=== PATIENT | female | born 1990 | race Caucasian/White ===

== ENCOUNTER 2017-01-31 00:50 | Emergency (ER) | payer OTHER ==
[~2017-01-31] VITALS: Ht 170.1 cm; Wt 77.1 kg
[~2017-01-31 00:50] MED LIST: ANAPROX DS550 MG PO; AUGMENTIN 875 M1 TAB PO; CIPRO250 MG PO; DIFLUCAN150 MG PO; FLAGYL500 MG PO; MOTRIN400 MG PO; MOTRIN800 MG PO; NKHM; PREDNICOT20 MG PO; PRENATAL VITAMI1 TA9 PO; PROVENTIL0.09 MG/AC IH; Percocet 325 MG1 TAB PO; ROBITUSSIN AC 10 MG/ PO; VALIUM5 MG PO; VIBRAMYCIN100 MG PO; VISTARIL25 M1 PO; XANAX0.25 MG PO; ZITHROMAX250 MG PO; ZYPREXA5 M1 PO
== END 2017-01-31 02:35 ==
LOC: ED 00:50
DX: S00.83XA Contusion of other part of head, initial encounter (principal); F31.9 Bipolar disorder, unspecified; F17.200 Nicotine dependence, unspecified, uncomplicated; Y04.0XXA Assault by unarmed brawl or fight, initial encounter; Y93.89 Activity, other specified; Y92.89 Other specified places as the place of occurrence of the external cause; Y99.8 Other external cause status

== ENCOUNTER 2017-04-18 19:47 | Emergency (ER) | payer OTHER ==
[~2017-04-18] VITALS: Ht 167.6 cm; Wt 70.3 kg
[2017-04-18 20:26] LABS: BASO % 0.4 % (0.0-1.0); EOS % 0.5 % (1.0-4.0); HEMATOCRIT 42.8 % (37.0-47.0); HEMOGLOBIN 14.4 g/dl (12.0-16.0); LYMPH # 2.2 10*3/uL (1.3-4.4); LYMPH % 28.5 % (27.0-41.0); MEAN CELL VOLUME 92.8 fl (81.0-99.0); MEAN CORPUSCULAR HGB 31.2 pg (27.0-31.0); MEAN CORPUSCULAR HGB CONC 33.6 g/dl (33.0-37.0); MEAN PLATELET VOLUME 10.5 fl (9.6-12.3); MONO # 0.5 10*3/uL (0.1-1.0); MONO % 5.8 % (3.0-9.0); NEUT % 64.5 % (47.0-73.0); PLATELET COUNT AUTOMATED 219 10*3/uL (130-400); RED BLOOD COUNT 4.61 10*6/uL (4.10-5.10); RED CELL DISTRI WIDTH 12.8 % (0-14.5); WHITE BLOOD COUNT 7.7 10*3/uL (4.8-10.8)
[2017-04-18 20:46] LABS: ALKALINE PHOSPHATASE 69 U/L (45-117); BILIRUBIN, TOTAL 0.5 mg/dl (0.2-1.0); BUN 9 mg/dl (7-24); CARBON DIOXIDE 24 mmol/L (21-32); CHLORIDE 108 mmol/L (98-107); EST GLOM FILT AFRICAN AMERICAN > 60 ml/min; GLUCOSE 96 mg/dL (65-99); MAGNESIUM 1.9 mg/dL (1.5-2.1); POTASSIUM 3.7 mmol/L (3.5-5.1); SGOT/AST 35 IU/L (3-35); SGPT/ALT 60 U/L (12-78); SODIUM 142 mmol/L (136-145); TOTAL PROTEIN 7.8 gm/dL (6.4-8.2)
[2017-04-18 20:48] LABS: TROPONIN I < 0.015 ng/ml (<0.045)
[2017-04-18] MEDS ORDERED: Motrin,Rufen800 MG PO (21:55)
[2017-04-18] MEDS ORDERED: PEPCID20 MG PO (21:56)
[2017-04-19] MEDS ORDERED: TYLENOL325 M1 PO (10:36)
[2017-04-19] MEDS ORDERED: Zofran4 MG PO (10:41)
== END 2017-04-18 22:05 | disposition home or self-care (01) ==
LOC: ED 19:47
PROVIDERS: Emergency Medicine Emergency Medical Services
DX: S39.012A Strain of muscle, fascia and tendon of lower back, initial encounter (principal); K21.9 Gastro-esophageal reflux disease without esophagitis; F41.1 Generalized anxiety disorder; F43.0 Acute stress reaction; R06.02 Shortness of breath; R07.89 Other chest pain; X58.XXXA Exposure to other specified factors, initial encounter; Y93.9 Activity, unspecified; Y92.9 Unspecified place or not applicable; Y99.9 Unspecified external cause status

== ENCOUNTER 2017-04-19 08:41 | Emergency (ER) | payer OTHER ==
[~2017-04-19] VITALS: Ht 170.1 cm; Wt 70.3 kg
[~2017-04-19 08:41] MED LIST changes: +Motrin,Rufen800 MG PO; +PEPCID20 MG PO
[2017-04-19 09:12] LABS: BASO % 0.1 % (0.0-1.0); EOS # 0.1 10*3/uL (0.0-0.4); EOS % 0.7 % (1.0-4.0); HEMATOCRIT 39.2 % (37.0-47.0); HEMOGLOBIN 13.2 g/dl (12.0-16.0); LYMPH # 2.2 10*3/uL (1.3-4.4); LYMPH % 31.1 % (27.0-41.0); MEAN CELL VOLUME 92.9 fl (81.0-99.0); MEAN CORPUSCULAR HGB 31.3 pg (27.0-31.0); MEAN CORPUSCULAR HGB CONC 33.7 g/dl (33.0-37.0); MEAN PLATELET VOLUME 10.6 fl (9.6-12.3); MONO # 0.5 10*3/uL (0.1-1.0); MONO % 7.2 % (3.0-9.0); NEUT # 4.3 10*3/uL (2.3-7.9); NEUT % 60.6 % (47.0-73.0); PLATELET COUNT AUTOMATED 177 10*3/uL (130-400); RED BLOOD COUNT 4.22 10*6/uL (4.10-5.10); RED CELL DISTRI WIDTH 12.9 % (0-14.5); WHITE BLOOD COUNT 7.1 10*3/uL (4.8-10.8)
[2017-04-19 09:21] LABS: PROTHROMBIN TIME 11.1 SECONDS (9.0-12.4)
[2017-04-19 09:27] LABS: ALBUMIN 3.7 gm/dl (3.1-4.5); ALKALINE PHOSPHATASE 61 U/L (45-117); BILIRUBIN, TOTAL 0.5 mg/dl (0.2-1.0); BUN 10 mg/dl (7-24); CARBON DIOXIDE 22 mmol/L (21-32); CHLORIDE 109 mmol/L (98-107); EST GLOM FILT AFRICAN AMERICAN > 60 ml/min; GLUCOSE 90 mg/dL (65-99); POTASSIUM 3.6 mmol/L (3.5-5.1); SGOT/AST 40 IU/L (3-35); SGPT/ALT 55 U/L (12-78); SODIUM 140 mmol/L (136-145)
[2017-04-19] MEDS ORDERED: TYLENOL325 M1 PO (10:36)
[2017-04-19] MEDS ORDERED: Zofran4 MG PO (10:41)
== END 2017-04-19 11:08 | disposition home or self-care (01) ==
LOC: ED 08:41
PROVIDERS: Student in an Organized Health Care Education/Training Program
DX: K92.0 Hematemesis (principal); R10.11 Right upper quadrant pain; R10.12 Left upper quadrant pain; K21.9 Gastro-esophageal reflux disease without esophagitis; F17.200 Nicotine dependence, unspecified, uncomplicated

== ENCOUNTER 2017-12-11 21:34 | Emergency (ER) | payer OTHER ==
[~2017-12-11] VITALS: Ht 170.1 cm; Wt 70.3 kg
[~2017-12-11 21:34] MED LIST changes: +TYLENOL325 M1 PO; +Zofran4 MG PO
[2017-12-11 22:29] LABS: BASO % 0.2 % (0.0-1.0); HEMATOCRIT 40.5 % (37.0-47.0); HEMOGLOBIN 13.4 g/dl (12.0-16.0); LYMPH # 1.6 10*3/uL (1.3-4.4); LYMPH % 12.2 % (27.0-41.0); MEAN CORPUSCULAR HGB 30.5 pg (27.0-31.0); MEAN CORPUSCULAR HGB CONC 33.1 g/dl (33.0-37.0); MEAN PLATELET VOLUME 10.8 fl (9.6-12.3); MONO # 1.2 10*3/uL (0.1-1.0); MONO % 9.3 % (3.0-9.0); NEUT % 77.9 % (47.0-73.0); PLATELET COUNT AUTOMATED 134 10*3/uL (130-400); RED CELL DISTRI WIDTH 12.5 % (0-14.5); WHITE BLOOD COUNT 12.8 10*3/uL (4.8-10.8)
[2017-12-11 22:43] LABS: ALBUMIN 3.4 gm/dl (3.1-4.5); ALKALINE PHOSPHATASE 72 U/L (45-117); BUN 11 mg/dl (7-24); CHLORIDE 100 mmol/L (98-107); CREATININE 0.94 mg/dL (0.55-1.02); LIPASE 52 U/L (73-393); POTASSIUM 3.3 mmol/L (3.5-5.1); SGOT/AST 35 IU/L (3-35); SGPT/ALT 55 U/L (12-78); SODIUM 135 mmol/L (136-145); TOTAL PROTEIN 7.2 gm/dL (6.4-8.2)
[2017-12-11 22:53] LABS: BILIRUBIN 1+ (NEGATIVE); BLOOD 3+ (NEGATIVE); CLARITY CLOUDY (CLEAR); COLOR YELLOW (YELLOW); GLUCOSE NEGATIVE (NEGATIVE); KETONE 1+ (NEGATIVE); LEUKO ESTERASE 2+ (NEGATIVE); NITRITE POSITIVE (NEGATIVE)
[2017-12-11 23:07] LABS: BACTERIA 3+; RBC 21-30 rbc/hpf (0-2); WBC 31-40 wbc/hpf (0-5)
[2017-12-11] MEDS ORDERED: MACROBID100 M1 PO (23:43)
== END 2017-12-12 00:31 | disposition home or self-care (01) ==
LOC: ED 21:34
PROVIDERS: Nurse Practitioner Family
DX: N39.0 Urinary tract infection, site not specified (principal); F17.200 Nicotine dependence, unspecified, uncomplicated

== ENCOUNTER 2017-12-19 12:48 | Emergency (ER) | payer OTHER ==
[~2017-12-19] VITALS: Wt 72.6 kg
[~2017-12-19 12:48] MED LIST changes: +MACROBID100 M1 PO
[2017-12-19] MEDS ORDERED: SEPTDS PO (13:05)
[2017-12-19] MEDS ORDERED: Bactroban Oint22 GM T (13:05)
[2017-12-19] MEDS ORDERED: KEFLEX500 M1 PO (13:05)
== END 2017-12-19 13:14 | disposition home or self-care (01) ==
LOC: ED 12:48
DX: L02.214 Cutaneous abscess of groin (principal); F17.200 Nicotine dependence, unspecified, uncomplicated; K21.9 Gastro-esophageal reflux disease without esophagitis

== ENCOUNTER 2018-02-28 14:33 | Emergency (ER) | payer OTHER ==
[~2018-02-28] VITALS: Ht 167.6 cm; Wt 70.3 kg
[~2018-02-28 14:33] MED LIST changes: +Bactroban Oint22 GM T; +KEFLEX500 M1 PO; +SEPTDS PO
[2018-02-28] MEDS ORDERED: NORCO 5-325 TA1 EACH PO (15:27)
[2018-02-28] MEDS ORDERED: SEPTDS PO (15:27)
[2018-02-28] MEDS ORDERED: CEFADROXIL500 M1 PO (15:27)
[2018-04-06] MEDS ORDERED: KEFLEX500 M1 PO ×2 (00:58→01:04)
== END 2018-02-28 15:41 | disposition home or self-care (01) ==
LOC: ED 14:33
DX: L02.214 Cutaneous abscess of groin (principal)

== ENCOUNTER → 2018-03-02 | Outpatient (CLI) | payer OTHER ==
[~2018-03-02] MED LIST changes: +CEFADROXIL500 M1 PO; +NORCO 5-325 TA1 EACH PO
== END | disposition home or self-care (01) ==
LOC: WOUNDCARE 03-01 01:29
DX: N76.4 Abscess of vulva (principal); A49.02 Methicillin resistant Staphylococcus aureus infection, unspecified site; F17.200 Nicotine dependence, unspecified, uncomplicated; Z86.19 Personal history of other infectious and parasitic diseases

== ENCOUNTER 2018-03-21 17:58 | Emergency (ER) | payer OTHER ==
[2018-03-21 18:41] LABS: BASO % 0.1 % (0.0-1.0); EOS % 0.1 % (1.0-4.0); HEMATOCRIT 45.1 % (37.0-47.0); HEMOGLOBIN 14.8 g/dl (12.0-16.0); LYMPH # 2.3 10*3/uL (1.3-4.4); LYMPH % 11.1 % (27.0-41.0); MEAN CELL VOLUME 93.2 fl (81.0-99.0); MEAN CORPUSCULAR HGB 30.6 pg (27.0-31.0); MEAN CORPUSCULAR HGB CONC 32.8 g/dl (33.0-37.0); MEAN PLATELET VOLUME 10.5 fl (9.6-12.3); MONO # 0.7 10*3/uL (0.1-1.0); MONO % 3.3 % (3.0-9.0); NEUT # 17.4 10*3/uL (2.3-7.9); NEUT % 84.9 % (47.0-73.0); PLATELET COUNT AUTOMATED 366 10*3/uL (130-400); RED BLOOD COUNT 4.84 10*6/uL (4.10-5.10); RED CELL DISTRI WIDTH 13.6 % (0-14.5); WHITE BLOOD COUNT 20.5 10*3/uL (4.8-10.8)
[2018-03-21 18:49] LABS: BILIRUBIN NEGATIVE (NEGATIVE); BLOOD NEGATIVE (NEGATIVE); CLARITY SL CLOUDY (CLEAR); COLOR YELLOW (YELLOW); GLUCOSE NEGATIVE (NEGATIVE); KETONE TRACE (NEGATIVE); LEUKO ESTERASE TRACE (NEGATIVE); NITRITE NEGATIVE (NEGATIVE)
[2018-03-21 18:56] LABS: ALBUMIN 4.1 gm/dl (3.1-4.5); ALKALINE PHOSPHATASE 86 U/L (45-117); BUN 17 mg/dl (7-24); CHLORIDE 110 mmol/L (98-107); CREATININE 0.99 mg/dL (0.55-1.02); LIPASE 126 U/L (73-393); POTASSIUM 3.8 mmol/L (3.5-5.1); SGOT/AST 31 IU/L (3-35); SGPT/ALT 52 U/L (12-78); SODIUM 141 mmol/L (136-145); TOTAL PROTEIN 7.6 gm/dL (6.4-8.2)
[2018-03-21 18:58] LABS: URINE AMPHETAMINES < 1000 (1000ng/ml); URINE BARBITURATES < 200 (200ng/ml); URINE BENZODIAZEPINES < 200 (200ng/ml); URINE CANNABINOIDS (THC) > 50 (50ng/ml); URINE COCAINE > 300 (300ng/ml); URINE METHADONE < 300 (300ng/ml); URINE OPIATES > 300 (300ng/ml)
[2018-03-21 19:03] LABS: URINE PHENCYCLIDINE < 25 (25ng/ml)
[2018-03-21 19:17] LABS: BACTERIA TRACE; CALCIUM OXALATE CRYSTALS 1+; EPITHELIAL CELLS TNTC; MUCOUS 1+; RBC 0-2 rbc/hpf (0-2)
[2018-03-21 21:23] LABS: BASO % 0.2 % (0.0-1.0); HEMOGLOBIN 12.8 g/dl (12.0-16.0); LYMPH # 2.2 10*3/uL (1.3-4.4); LYMPH % 9.8 % (27.0-41.0); MEAN CELL VOLUME 92.9 fl (81.0-99.0); MEAN CORPUSCULAR HGB 30.3 pg (27.0-31.0); MEAN CORPUSCULAR HGB CONC 32.7 g/dl (33.0-37.0); MEAN PLATELET VOLUME 10.5 fl (9.6-12.3); MONO # 0.7 10*3/uL (0.1-1.0); NEUT # 18.9 10*3/uL (2.3-7.9); NEUT % 86.4 % (47.0-73.0); PLATELET COUNT AUTOMATED 354 10*3/uL (130-400); RED BLOOD COUNT 4.22 10*6/uL (4.10-5.10); RED CELL DISTRI WIDTH 13.7 % (0-14.5); WHITE BLOOD COUNT 21.9 10*3/uL (4.8-10.8)
[2018-03-21 21:24] LABS: HEMATOCRIT 39.2 % (37.0-47.0)
[2018-03-21 21:29] LABS: ACT PARTIAL THROMBO TIME 21.4 SECONDS (20.8-31.5)
[2018-03-21 21:40] LABS: ETHYL ALCOHOL < 3.0 mg/dl (<3); TROPONIN I < 0.015 ng/ml (<0.045)
[2018-04-06] MEDS ORDERED: KEFLEX500 M1 PO ×2 (00:58→01:04)
== END 2018-03-21 21:36 | disposition short-term general hospital (02) ==
LOC: ED 17:58
PROVIDERS: Physician Assistant
DX: S36.039A Unspecified laceration of spleen, initial encounter (principal); R42 Dizziness and giddiness; R10.32 Left lower quadrant pain; F17.200 Nicotine dependence, unspecified, uncomplicated; W10.9XXA Fall (on) (from) unspecified stairs and steps, initial encounter; Y93.89 Activity, other specified; Y92.89 Other specified places as the place of occurrence of the external cause; Y99.9 Unspecified external cause status

== ENCOUNTER 2018-06-10 15:05 | Emergency (ER) | payer OTHER ==
[~2018-06-10] VITALS: Ht 170.1 cm; Wt 70.3 kg
[2018-06-10 15:41] LABS: BASO # 0.1 10*3/uL (0.0-0.1); BASO % 0.6 % (0.0-1.0); EOS # 0.1 10*3/uL (0.0-0.4); EOS % 0.6 % (1.0-4.0); HEMATOCRIT 36.2 % (37.0-47.0); HEMOGLOBIN 10.8 g/dl (12.0-16.0); LYMPH # 4.1 10*3/uL (1.3-4.4); LYMPH % 30.2 % (27.0-41.0); MEAN CELL VOLUME 80.1 fl (81.0-99.0); MEAN CORPUSCULAR HGB 23.9 pg (27.0-31.0); MEAN CORPUSCULAR HGB CONC 29.8 g/dl (33.0-37.0); MEAN PLATELET VOLUME 8.6 fl (9.6-12.3); MONO # 1.2 10*3/uL (0.1-1.0); MONO % 8.8 % (3.0-9.0); NEUT # 8.1 10*3/uL (2.3-7.9); NEUT % 59.3 % (47.0-73.0); PLATELET COUNT AUTOMATED 886 10*3/uL (130-400); RED BLOOD COUNT 4.52 10*6/uL (4.10-5.10); RED CELL DISTRI WIDTH 18.4 % (0-14.5); WHITE BLOOD COUNT 13.6 10*3/uL (4.8-10.8)
[2018-06-10 15:56] LABS: ALBUMIN 4.2 gm/dl (3.1-4.5); ALKALINE PHOSPHATASE 127 U/L (45-117); BUN 11 mg/dl (7-24); CHLORIDE 108 mmol/L (98-107); CREATININE 0.78 mg/dL (0.55-1.02); POTASSIUM 4.3 mmol/L (3.5-5.1); SGOT/AST 39 IU/L (3-35); SGPT/ALT 67 U/L (12-78); SODIUM 140 mmol/L (136-145); TOTAL PROTEIN 8.4 gm/dL (6.4-8.2)
[2018-06-10 16:02] LABS: BETA-HCG, QUANT < 1.0 mIU/mL (1-3)
[2018-07-01] MEDS ORDERED: VIBRAMYCIN100 MG PO (13:07)
[2018-07-01] MEDS ORDERED: DIFLUCAN150 MG PO (13:11)
[2018-07-04] MEDS ORDERED: SEPTDS PO (12:58)
[2018-07-04] MEDS ORDERED: NORCO 5-325 TA1 EACH PO (12:58)
== END 2018-06-10 16:13 | disposition home or self-care (01) ==
LOC: ED 15:05
PROVIDERS: Nurse Practitioner Family
DX: N94.6 Dysmenorrhea, unspecified (principal); K21.9 Gastro-esophageal reflux disease without esophagitis

== ENCOUNTER 2018-07-05 15:57 | Emergency (ER) | payer OTHER ==
[~2018-07-05] VITALS: Ht 170.1 cm; Wt 70.3 kg
[2018-07-05] MEDS ORDERED: SEPTDS PO (16:22)
== END 2018-07-05 16:29 | disposition home or self-care (01) ==
LOC: ED 15:57
DX: Z48.01 Encounter for change or removal of surgical wound dressing (principal); Z76.0 Encounter for issue of repeat prescription; F17.200 Nicotine dependence, unspecified, uncomplicated; Z79.82 Long term (current) use of aspirin; Z98.890 Other specified postprocedural states

== ENCOUNTER → 2018-07-06 | Outpatient (CLI) | payer OTHER | END | disposition home or self-care (01) | LOC: WOUNDCARE 08:54 | DX: L02.415 Cutaneous abscess of right lower limb (principal); A49.01 Methicillin susceptible Staphylococcus aureus infection, unspecified site; K21.9 Gastro-esophageal reflux disease without esophagitis; F41.9 Anxiety disorder, unspecified; F31.9 Bipolar disorder, unspecified; F19.10 Other psychoactive substance abuse, uncomplicated; F17.200 Nicotine dependence, unspecified, uncomplicated ==

== ENCOUNTER 2018-11-09 11:43 | Emergency (ER) | payer OTHER ==
[~2018-11-09] VITALS: Ht 170.1 cm; Wt 70.3 kg
[2018-11-09] MEDS ORDERED: DOXEPIN HCL25 MG PO (11:52)
[2018-11-09] MEDS ORDERED: IBUPROFEN600 MG PO (12:29)
[2018-11-09] MEDS ORDERED: SEPTDS PO (12:29)
[2018-12-12] MEDS ORDERED: ABILIFY10 MG PO (18:00)
[2018-12-12] MEDS ORDERED: DOXEPIN HCL25 MG PO (19:00)
== END 2018-11-09 12:37 | disposition home or self-care (01) ==
LOC: ED 11:43
DX: L02.412 Cutaneous abscess of left axilla (principal); F17.200 Nicotine dependence, unspecified, uncomplicated; Z86.14 Personal history of Methicillin resistant Staphylococcus aureus infection

== ENCOUNTER 2018-11-25 18:57 | Emergency (ER) | payer OTHER ==
[~2018-11-25] VITALS: Ht 170.1 cm; Wt 70.3 kg
[~2018-11-25 18:57] MED LIST changes: +DOXEPIN HCL25 MG PO; +IBUPROFEN600 MG PO
[2018-11-25 19:35] LABS: HEMOGLOBIN 12.3 g/dl (12.0-16.0); MEAN CELL VOLUME 83.3 fl (81.0-99.0); MEAN PLATELET VOLUME 9.2 fl (9.6-12.3); PLATELET COUNT AUTOMATED 682 10*3/uL (130-400); RED BLOOD COUNT 4.92 10*6/uL (4.10-5.10); RED CELL DISTRI WIDTH 20.4 % (0-14.5)
[2018-11-25 20:04] LABS: ALBUMIN 3.4 gm/dl (3.1-4.5); ALKALINE PHOSPHATASE 102 U/L (45-117); BUN 10 mg/dl (7-24); CHLORIDE 106 mmol/L (98-107); CREATININE 0.88 mg/dL (0.55-1.02); POTASSIUM 3.9 mmol/L (3.5-5.1); SGOT/AST 43 IU/L (3-35); SGPT/ALT 56 U/L (12-78); SODIUM 138 mmol/L (136-145); TOTAL PROTEIN 7.8 gm/dL (6.4-8.2)
[2018-11-25 20:13] LABS: PLATELET SUFFICIENCY HIGH (NORMAL); TOTAL CELLS COUNTED 100 #CELLS
[2018-11-25 20:14] LABS: POLYCHROMASIA SLIGHT; TARGET CELLS FEW
[2018-11-25 20:15] LABS: ACANTHOCYTES FEW
[2018-11-25] MEDS ORDERED: IBU800 MG PO (20:30)
[2018-11-25] MEDS ORDERED: CLEOCIN HCL150 MG PO (20:30)
[2018-11-25 20:52] LABS: BILIRUBIN NEGATIVE (NEGATIVE); BLOOD 2+ (NEGATIVE); CLARITY SL CLOUDY (CLEAR); COLOR YELLOW (YELLOW); GLUCOSE NEGATIVE (NEGATIVE); KETONE NEGATIVE (NEGATIVE); LEUKO ESTERASE NEGATIVE (NEGATIVE); NITRITE NEGATIVE (NEGATIVE); SPECIFIC GRAVITY 1.015 (1.005-1.030); UROBILINOGEN 0.2 E.U./dl (0.2-1.0)
[2018-11-25 20:56] LABS: BACTERIA 2+; MUCOUS TRACE
[2018-12-12] MEDS ORDERED: ABILIFY10 MG PO (18:00)
[2018-12-12] MEDS ORDERED: DOXEPIN HCL25 MG PO (19:00)
== END 2018-11-25 21:15 | disposition home or self-care (01) ==
LOC: ED 18:57
PROVIDERS: Nurse Practitioner Family
DX: K04.7 Periapical abscess without sinus (principal); F17.200 Nicotine dependence, unspecified, uncomplicated; Z79.2 Long term (current) use of antibiotics; Z79.899 Other long term (current) drug therapy; Z90.49 Acquired absence of other specified parts of digestive tract

== ENCOUNTER 2019-03-15 13:21 | Emergency (ER) | payer OTHER ==
[~2019-03-15] VITALS: Ht 170.1 cm; Wt 70.3 kg
[~2019-03-15 13:21] MED LIST changes: +ABILIFY10 MG PO; +CLEOCIN HCL150 MG PO; +IBU800 MG PO
[2019-03-15 13:48] LABS: BILIRUBIN NEGATIVE (NEGATIVE); BLOOD NEGATIVE (NEGATIVE); CLARITY SL CLOUDY (CLEAR); COLOR YELLOW (YELLOW); GLUCOSE NEGATIVE (NEGATIVE); KETONE NEGATIVE (NEGATIVE); LEUKO ESTERASE 1+ (NEGATIVE); NITRITE NEGATIVE (NEGATIVE); SPECIFIC GRAVITY <= 1.005 (1.005-1.030); UROBILINOGEN 0.2 E.U./dl (0.2-1.0)
[2019-03-15 14:10] LABS: RBC 0-2 rbc/hpf (0-2)
[2019-03-19 17:29] LABS: GONOCOCCUS BY NAA Positive (Negative)
== END 2019-03-15 15:41 | disposition home or self-care (01) ==
LOC: ED 13:21
PROVIDERS: Nurse Practitioner Family
DX: R30.0 Dysuria (principal); R35.0 Frequency of micturition; R39.11 Hesitancy of micturition; R11.0 Nausea; Z20.2 Contact with and (suspected) exposure to infections with a predominantly sexual mode of transmission; F17.200 Nicotine dependence, unspecified, uncomplicated; Z32.02 Encounter for pregnancy test, result negative; Z90.49 Acquired absence of other specified parts of digestive tract

== ENCOUNTER 2019-04-26 20:23 | Inpatient (IN) | payer OTHER ==
[~2019-04-26] VITALS: Ht 167.6 cm; Wt 63.8 kg
--- NOTE | ~2019-04-26 | EKG ---
[place], [place] ELECTROCARDIOGRAM REPORT NAME: GREYSON MARTINEZ UNIT #: [id number] ROOM: 419 DOCTOR: UZMAANY DRAFT REPORT BIRTHDATE: [birth year] [facility] Test Date: 2019-04-26 Test Time: 20:53:07 Pat Name: GREYSON MARTINEZ Department: Room: 419 Gender: F Nursing Educator: Brigid Padron : 1990 Requested By: CHELSIE NO PA-C Order Number: [id number] Reading MD: Ingris Harp MD Measurements Intervals [place] Rate: 96 P: 58 VT: 144 QRS: 80 QRSD: 93 T: 23 QT: 354 QTc: 448 Interpretive Statements Sinus rhythm Baseline wander in lead(s) I,II,aVR,aVL Compared to ECG 04/12/2019 01:59:52 No significant changes Electronically Signed On 04-27-2019 11:19:36 PDT by Ingris Harp MD CM:EKGRPT:ELECTROCARDIOGRAM REPORT [id number] CHELSIE NO PA-C EPIPHANY DRAFT REPORT CHELSIE NO PA-C
--- NOTE | ~2019-04-26 | EKG ---
[place], [place] ELECTROCARDIOGRAM REPORT NAME: GREYSON MARTINEZ UNIT #: [id number] ROOM: 419 DOCTOR: HILARIO DRAFT REPORT BIRTHDATE: [birth year] [facility] Test Date: 2019-04-27 Test Time: 15:50:24 Pat Name: GREYSON MARTINEZ Department: Room: 419 1 Gender: F Group Fitness Manager: : 1990 Requested By: IVONNE GARCIA Order Number: [id number] Reading MD: Savanna Luna MD Measurements Intervals [place] Rate: 74 P: 55 HI: 144 QRS: 75 QRSD: 93 T: 44 QT: 414 QTc: 460 Interpretive Statements Sinus rhythm Compared to ECG 04/26/2019 20:53:07 No significant changes Electronically Signed On 04-29-2019 6:49:48 PDT by Savanna Luna MD CM:EKGRPT:ELECTROCARDIOGRAM REPORT [id number] IVONNE GARCIA EPIPHANY DRAFT REPORT IVONNE GARCIA
[2019-04-26 20:30] VITALS: BP 138/86
[2019-04-26 21:02] LABS: HEMATOCRIT 34.7 % (37.0-47.0); HEMOGLOBIN 10.8 g/dl (12.0-16.0); MEAN CELL VOLUME 87.4 fl (81.0-99.0); MEAN CORPUSCULAR HGB 27.2 pg (27.0-31.0); MEAN CORPUSCULAR HGB CONC 31.1 g/dl (33.0-37.0); MEAN PLATELET VOLUME 8.9 fl (9.6-12.3); PLATELET COUNT AUTOMATED 740 10*3/uL (130-400); RED BLOOD COUNT 3.97 10*6/uL (4.10-5.10); RED CELL DISTRI WIDTH 16.2 % (0-14.5); WHITE BLOOD COUNT 16.7 10*3/uL (4.8-10.8)
[2019-04-26 21:20] LABS: BILIRUBIN NEGATIVE (NEGATIVE); BLOOD TRACE-INTACT (NEGATIVE); CLARITY CLEAR (CLEAR); COLOR YELLOW (YELLOW); GLUCOSE NEGATIVE (NEGATIVE); KETONE NEGATIVE (NEGATIVE); LEUKO ESTERASE NEGATIVE (NEGATIVE); NITRITE NEGATIVE (NEGATIVE); SPECIFIC GRAVITY >= 1.030 (1.005-1.030); UROBILINOGEN 0.2 E.U./dl (0.2-1.0)
[2019-04-26 21:20] LABS: ALBUMIN 3.7 gm/dl (3.1-4.5); ALKALINE PHOSPHATASE 85 U/L (45-117); BUN 15 mg/dl (7-24); CHLORIDE 108 mmol/L (98-107); CREATININE 0.87 mg/dL (0.55-1.02); POTASSIUM 3.5 mmol/L (3.5-5.1); SGOT/AST 32 IU/L (3-35); SGPT/ALT 29 U/L (12-78); SODIUM 140 mmol/L (136-145); TOTAL PROTEIN 7.5 gm/dL (6.4-8.2)
[2019-04-26 21:22] VITALS: BP 121/71
[2019-04-26 21:23] LABS: ETHYL ALCOHOL < 3.0 mg/dl (<3); TROPONIN I < 0.015 ng/ml (<0.045)
[2019-04-26 21:26] LABS: ATYPICAL LYMPHS 1 % (0-0); BASOPHILS 3 % (0-1); PLATELET SUFFICIENCY HIGH (NORMAL); TOTAL CELLS COUNTED 100 #CELLS
[2019-04-26 21:27] LABS: BURR CELLS FEW; OVALOCYTES FEW; TARGET CELLS FEW
[2019-04-26 21:28] LABS: URINE AMPHETAMINES > 1000 (1000ng/ml); URINE BARBITURATES < 200 (200ng/ml); URINE BENZODIAZEPINES > 200 (200ng/ml); URINE CANNABINOIDS (THC) < 50 (50ng/ml); URINE COCAINE > 300 (300ng/ml); URINE METHADONE < 300 (300ng/ml); URINE OPIATES > 300 (300ng/ml)
[2019-04-26 21:29] LABS: BACTERIA 2+
[2019-04-26 21:30] LABS: URINE PHENCYCLIDINE < 25 (25ng/ml)
--- NOTE | 2019-04-26 21:30 | NUR ---
PATIENT IN BED AWAKE AND ALERT AT THIS TIME. CALL LIGHT WITHIN REACH. RN WILL CONT TO MONITOR. VOICES NO COMPLAINTS AT THIS TIME
[2019-04-26 21:41] VITALS: BP 109/68
--- NOTE | 2019-04-26 22:06 | NUR ---
PATIENT IN BED RESTING EYES AT THIS TIME. CONT FICTION WRITER AND PULSE OX IN PLACE. RESP EASY AND NONLABORED. NO DISTRESS NOTED. RN WILL CONT TO MONITOR.
[2019-04-26 22:07] VITALS: BP 107/61
[2019-04-26 23:11] VITALS: BP 114/71
[2019-04-26 23:20] VITALS: BP 108/56
--- NOTE | 2019-04-26 23:20 | NUR ---
Time: 2319 A 28 year old female admitted to under services of LUPE SINGH DO Pt. arrived via bed from ER. Chief complaint: overdose. PT noted to be very lethargic, drowsy and withdrawn. PT unable to ambulate to ER cart to her bed. She is only able to reply with short answers before drifting off back to sleep. PT not able to sign admission papers due to her current status. Per ER nurse, PT has not slept in 5 days. PT denies having any home medications. Initial assessment completed - see admission assessment. quality assurance monitor applied to PT. Will continue to monitor closely. MONIQUE RANDHAWA
--- NOTE | 2019-04-27 04:49 | NUR ---
PT SLEEPING IN BED AT THIS TIME. SHE IS STILL VERY DROWSY BUT ABLE TO FOLLOW COMMANDS. RESPIRATIONS EASY AND NONLABORED. BED LOCKED AND IN THE LOWEST POSITION, CALL LIGHT WITHIN REACH. WILL CONTINUE TO MONITOR PT.
--- NOTE | 2019-04-27 05:35 | NUR ---
PT AWAKE AND ALERT AT THIS TIME. SHE WAS ABLE TO ANSWER QUESTIONS APPROPRIATELY AND SIGN HER ADMISSION PAPERS. WILL CONTINUE TO MONITOR.
--- NOTE | 2019-04-27 07:00 | NUR ---
ARRIVED ON SHIFT, PATIENT SLEEPING, DURING BEDSIDE REPORT SHE DID NOT AWAKEN, WHITE BOARD UPDATED,
--- NOTE | 2019-04-27 07:58 | NUR ---
Shift chart check completed.
--- NOTE | 2019-04-27 11:35 | NUR ---
PATIENT MEETS [facility]. PATIENT IS LOOKING FOR RESIDENTIAL TREATMENT THAT OFFERS MEDICATION-ASSISTED TREATMENT. DC STAFF PROVIDED PATIENT WITH REFERRAL OPTIONS. DC STAFF WILL FOLLOW UP WITH FACILITIES THAT WILL MEET HER NEEDS. JOVITA HENDERSON B.A. IN HOME CAREGIVER
[2019-04-27 11:47] VITALS: BP 107/76
[2019-04-27 15:45] LABS: BASO # 0.1 10*3/uL (0.0-0.1); BASO % 0.6 % (0.0-1.0); EOS # 0.2 10*3/uL (0.0-0.4); EOS % 1.7 % (1.0-4.0); HEMATOCRIT 35.4 % (37.0-47.0); HEMOGLOBIN 11.1 g/dl (12.0-16.0); LYMPH # 3.5 10*3/uL (1.3-4.4); MEAN CELL VOLUME 87.8 fl (81.0-99.0); MEAN CORPUSCULAR HGB 27.5 pg (27.0-31.0); MEAN CORPUSCULAR HGB CONC 31.4 g/dl (33.0-37.0); MONO # 0.8 10*3/uL (0.1-1.0); MONO % 8.9 % (3.0-9.0); NEUT # 4.9 10*3/uL (2.3-7.9); NEUT % 51.6 % (47.0-73.0); PLATELET COUNT AUTOMATED 708 10*3/uL (130-400); RED BLOOD COUNT 4.03 10*6/uL (4.10-5.10); RED CELL DISTRI WIDTH 16.4 % (0-14.5); WHITE BLOOD COUNT 9.5 10*3/uL (4.8-10.8)
[2019-04-27 16:00] VITALS: BP 105/68
[2019-04-27 16:07] LABS: BUN 14 mg/dl (7-24); CHLORIDE 106 mmol/L (98-107); CREATININE 0.65 mg/dL (0.55-1.02); SODIUM 137 mmol/L (136-145)
[2019-04-27 16:10] LABS: TROPONIN I < 0.015 ng/ml (<0.045)
--- NOTE | 2019-04-27 16:14 | NUR ---
MT STAFF CONTACTED [facility]. THEY PROVIDED MEDICATION-ASSISTED TREATMENT SERVICES AT THEIR RESIDENTIAL FACILITY. [place] STAFF SENT PATIENT'S ASSESSMENT TO FACILITY FOR REVIEW. THE FACILITY WILL CONTACT PATIENT FOR A PHONE INTERVIEW. [place] STAFF MADE PATIENT AWARE THAT FACILITY WILL BE CONTACTING HER. PATIENT AGREES AND UNDERSTANDS HER AFTERCARE PLAN. JOVITA HENDERSON B.A. SEEING EYE DOG TRAINER
--- NOTE | 2019-04-27 19:49 | NUR ---
NOTIFIED BY BOX HINGE AND LOCK ATTACHER, THAT PATIENT HAS CONVERTED BACK INTO SINUS RYTHYM.
[2019-04-27 20:00] VITALS: BP 112/68
--- NOTE | 2019-04-27 20:00 | NUR ---
PATIENT APPROPRIATE AT THIS TIME. REFUSED ANY PRN MEDS AT THIS TIME. PATIENT STATED SHE WILL TAKE A SLEEPING PILL TONIGHT WHEN SHE GETS HER SUBUTEX. PATIENT NEAR DESK, CALL LIGHT IN REACH.
--- NOTE | 2019-04-27 23:47 | NUR ---
NOTIFIED DR MURRIETA OF NO HCG FOR . DR MURRIETA STATED THAT IT WAS DONE IN THE ED AND THE TEST WAS NEGATIVE.
[2019-04-28] VITALS: BP 96/44
--- NOTE | 2019-04-28 07:00 | NUR ---
ARRIVED ON SHIFT, BEDSIDE REPORT RECEIVED, PATIENT SLEEPING, WHITE BAORD UPDATED.
--- NOTE | 2019-04-28 07:29 | NUR ---
Shift chart check completed.
[2019-04-28 08:00] VITALS: BP 94/51
--- NOTE | 2019-04-28 09:50 | NUR ---
PATIENT C/O BODY ACHES AND ANXIETY, MEDICATED WITH ROBAXIN AND VISTRAL.
--- NOTE | 2019-04-28 10:52 | NUR ---
follow up on robaxin and vistral given x 1 hour ago, patient is resting quietly with eyes closed respirations and non labored.
[2019-04-28 12:00] VITALS: BP 108/61
[2019-04-28 16:00] VITALS: BP 106/57
--- NOTE | 2019-04-28 16:30 | NUR ---
PT CALLED OUT TO REPORT ABSCESS ON HER RIGHT SHOULDER THAT SHE SAID HAS BEEN PRESENT FOR 5 DAYS DESPITE DENYING ANY WOUNDS WHEN PREVIOUSLY ASSESSED. DR. WAGNER NOTIFIED.
--- NOTE | 2019-04-28 17:00 | NUR ---
PT RESTING IN BED. MOTHER AT BEDSIDE. DENIES ANY NEEDS AT THIS TIME. CALL LIGHT IN REACH. WILL CONTINUE TO MONITOR.
--- NOTE | 2019-04-28 18:55 | NUR ---
DR. WAGNER NOTIFIED WOUND ORDERS ARE NEEDED. HE STATES THEY WILL TAKE A LOOK AT THE ABSCESS TOMORROW.
[2019-04-28 20:00] VITALS: BP 104/58
[2019-04-29] VITALS: BP 106/57
--- NOTE | 2019-04-29 | NUR ---
RESTING IN BED WITH EYES CLOSED. CALL LIGHT WITHIN REACH.
--- NOTE | 2019-04-29 04:00 | NUR ---
RESTING IN BED WITH EYES CLOSED; CALL LIGHT WITHIN REACH.
[2019-04-29 08:00] VITALS: BP 112/50
--- NOTE | 2019-04-29 10:10 | NUR ---
C/O GENERALIZED PAIN OF 5/10. MOTRIN GIVEN AT THIS TIME. WILL CONT TO MONITOR. CALL LIGHT IN REACH.
--- NOTE | 2019-04-29 11:10 | NUR ---
MOTRIN EFF. WILL CONT TO MONITOR.
[2019-04-29 12:00] VITALS: BP 111/60
--- NOTE | 2019-04-29 13:28 | NUR ---
C/O GENERALIZED PAIN OF 5/10. REQUESTED MOTRIN, TOO EARLY, TYLENOL GIVEN. WILL CONT TO MONITOR.
--- NOTE | 2019-04-29 14:28 | NUR ---
TYLENOL EFF. PT RESTING WITH EYES CLOSED.
[2019-04-29] MEDS ORDERED: DOXYCYCLINE100 M3 PO (15:36)
[2019-04-29 16:00] VITALS: BP 103/52; BP 119/51
--- NOTE | 2019-04-29 19:37 | NUR ---
PATIENT IS SLEEPING WITH EASY AND REGULAR RESPERS ON ROOM AIR. AWAKENS EASILY FOR ASSESSMENT. ASSESSMENT IS COMPLETE WITH NO S/S OF DISTRESS NOTED, PATIENT DOES C/O STOMACH ACHE AND RESTLESS LEGS. PRN REQUIP AND BENTYL GIVEN. BED IS LOW, LOCKED, AND CALL LIGHT IS WITHIN REACH. WILL CONTINUE TO MONITOR, SEE SHIFT ASSESSMENT.
[2019-04-29 20:00] VITALS: BP 113/68
[2019-04-30] VITALS: BP 159/84
[2019-04-30 06:11] LABS: CREATININE 0.56 mg/dL (0.55-1.02)
[2019-04-30 06:19] LABS: BASO % 0.4 % (0.0-1.0); EOS # 0.2 10*3/uL (0.0-0.4); EOS % 2.2 % (1.0-4.0); HEMATOCRIT 34.7 % (37.0-47.0); HEMOGLOBIN 10.5 g/dl (12.0-16.0); LYMPH # 4.4 10*3/uL (1.3-4.4); LYMPH % 47.1 % (27.0-41.0); MEAN CORPUSCULAR HGB 26.9 pg (27.0-31.0); MEAN CORPUSCULAR HGB CONC 30.3 g/dl (33.0-37.0); MEAN PLATELET VOLUME 9.5 fl (9.6-12.3); MONO # 0.8 10*3/uL (0.1-1.0); MONO % 9.1 % (3.0-9.0); NEUT # 3.8 10*3/uL (2.3-7.9); PLATELET COUNT AUTOMATED 737 10*3/uL (130-400); RED CELL DISTRI WIDTH 17.4 % (0-14.5); WHITE BLOOD COUNT 9.2 10*3/uL (4.8-10.8)
[2019-04-30 08:00] VITALS: BP 109/63
--- NOTE | 2019-04-30 08:20 | NUR ---
PER PT "I DON'T HAVE TIME. I HAVE TO GET TO COURT BEFORE I AM ARRESTED". NO DISCHARGE PHOTOS TAKEN AT THIS TIME DUE TO PATIENT REFUSAL.
--- NOTE | 2019-04-30 08:20 | NUR ---
PT DISCHARGED AT THIS TIME. IV REMOVED AND PRESSURE DRESSING APPLIED. HEART MONITOR RETURNED TO FLOOR. VERBALIZED UNDERSTANDING OF DISCHARGE INSTRUCTIONS. JOVITA FROM [facility] WAS UP TO SPEAK TO PATIENT PRIOR TO HER LEAVING.
== END 2019-04-30 08:20 | disposition home or self-care (01) | DRG 897 ==
LOC: ED 20:23 → EDHOLD 22:14 → 4E 22:14
PROVIDERS: Internal Medicine; Physician Assistant; ADMIT Internal Medicine
DX: F15.10 Other stimulant abuse, uncomplicated (principal); R65.10 Systemic inflammatory response syndrome (SIRS) of non-infectious origin without acute organ dysfunction; L03.113 Cellulitis of right upper limb; E83.41 Hypermagnesemia; E87.8 Other disorders of electrolyte and fluid balance, not elsewhere classified; F31.9 Bipolar disorder, unspecified; D64.9 Anemia, unspecified; F41.1 Generalized anxiety disorder; F10.10 Alcohol abuse, uncomplicated; B19.20 Unspecified viral hepatitis C without hepatic coma; D47.3 Essential (hemorrhagic) thrombocythemia; K21.9 Gastro-esophageal reflux disease without esophagitis; F11.10 Opioid abuse, uncomplicated; F14.10 Cocaine abuse, uncomplicated; F13.10 Sedative, hypnotic or anxiolytic abuse, uncomplicated; F17.210 Nicotine dependence, cigarettes, uncomplicated; Z71.6 Tobacco abuse counseling; Z90.81 Acquired absence of spleen; Z90.49 Acquired absence of other specified parts of digestive tract; Z82.49 Family history of ischemic heart disease and other diseases of the circulatory system; Z82.3 Family history of stroke

== ENCOUNTER 2020-11-14 15:44 | Inpatient (IN) | payer OTHER ==
[~2020-11-14] VITALS: Ht 170.1 cm; Wt 97.5 kg
[~2020-11-14 15:44] MED LIST changes: +DOXYCYCLINE100 M3 PO
[2020-11-14 16:01] VITALS: BP 127/100
[2020-11-14] MEDS ORDERED: SUBOXONE 8 MG-1 EACH SL (16:21)
[2020-11-14] MEDS ORDERED: VISTARIL50 MG PO (16:22)
[2020-11-14] MEDS ORDERED: REMERON SOLTAB15 MG PO (16:23)
[2020-11-14 16:34] LABS: MEAN CELL VOLUME 84.1 fl (81.0-99.0); MEAN CORPUSCULAR HGB 25.7 pg (27.0-31.0); MEAN CORPUSCULAR HGB CONC 30.6 g/dl (33.0-37.0); MEAN PLATELET VOLUME 8.6 fl (9.6-12.3); PLATELET COUNT AUTOMATED 713 10*3/uL (130-400); RED BLOOD COUNT 4.28 10*6/uL (4.10-5.10); RED CELL DISTRI WIDTH 16.1 % (0-14.5); WHITE BLOOD COUNT 19.2 10*3/uL (4.8-10.8)
[2020-11-14 16:48] LABS: ALBUMIN 3.6 gm/dl (3.1-4.5); ALKALINE PHOSPHATASE 101 U/L (45-117); BUN 11 mg/dl (7-24); CHLORIDE 111 mmol/L (98-107); CREATININE 0.78 mg/dL (0.55-1.02); POTASSIUM 4.1 mmol/L (3.5-5.1); SGOT/AST 42 IU/L (3-35); SGPT/ALT 40 U/L (12-78); SODIUM 142 mmol/L (136-145); TOTAL PROTEIN 7.2 gm/dL (6.4-8.2)
[2020-11-14 16:49] LABS: ETHYL ALCOHOL < 3.0 mg/dl (<3)
[2020-11-14 16:57] LABS: ACT PARTIAL THROMBO TIME 27.3 SECONDS (20.0-32.1); INTERNATIONAL NORM RATIO 0.9 (2.0-3.5)
[2020-11-14 16:58] LABS: TOTAL CELLS COUNTED 100 #CELLS
[2020-11-14 16:59] LABS: PLATELET SUFFICIENCY HIGH (NORMAL)
[2020-11-14 17:00] LABS: TARGET CELLS FEW
[2020-11-14 17:46] LABS: URINE AMPHETAMINES > 1000 (1000ng/ml); URINE BARBITURATES < 200 (200ng/ml); URINE BENZODIAZEPINES > 200 (200ng/ml); URINE CANNABINOIDS (THC) < 50 (50ng/ml); URINE COCAINE > 300 (300ng/ml); URINE METHADONE < 300 (300ng/ml); URINE OPIATES < 300 (300ng/ml)
[2020-11-14 17:49] LABS: URINE PHENCYCLIDINE < 25 (25ng/ml)
[2020-11-14 18:36] VITALS: BP 120/60
[2020-11-14 21:41] LABS: BILIRUBIN Negative (Negative); BLOOD Negative (Negative); CLARITY Clear (Clear); COLOR Yellow (Yellow); GLUCOSE Negative (Negative); KETONE Negative (Negative); LEUKO ESTERASE Trace (Negative); NITRITE Negative (Negative); PH 5.5 (4.5-8.0); SPECIFIC GRAVITY <= 1.005 (1.001-1.030); UROBILINOGEN 0.2 E.U./dl (0.0-1.0)
[2020-11-14 21:54] LABS: BACTERIA 1+
[2020-11-15 02:54] VITALS: BP 115/82
[2020-11-15 06:15] LABS: BASO # 0.1 10*3/uL (0.0-0.1); BASO % 0.6 % (0.0-1.0); EOS # 0.2 10*3/uL (0.0-0.4); EOS % 1.6 % (1.0-4.0); HEMATOCRIT 36.5 % (37.0-47.0); LYMPH % 32.4 % (27.0-41.0); MEAN CELL VOLUME 84.3 fl (81.0-99.0); MEAN CORPUSCULAR HGB 25.4 pg (27.0-31.0); MEAN CORPUSCULAR HGB CONC 30.1 g/dl (33.0-37.0); MEAN PLATELET VOLUME 9.2 fl (9.6-12.3); MONO % 7.7 % (3.0-9.0); NEUT # 7.1 10*3/uL (2.3-7.9); NEUT % 57.4 % (47.0-73.0); PLATELET COUNT AUTOMATED 763 10*3/uL (130-400); RED BLOOD COUNT 4.33 10*6/uL (4.10-5.10); WHITE BLOOD COUNT 12.4 10*3/uL (4.8-10.8)
[2020-11-15 08:00] VITALS: BP 120/80; BP 122/82
[2020-11-15] MEDS ORDERED: PROAIR HFA8.5 GM INH (08:34)
[2020-11-15 12:00] VITALS: BP 120/80
[2020-11-15 14:00] VITALS: BP 120/66
[2020-11-15] MEDS ORDERED: STOOL SOFTENER100 M3 PO (14:19)
[2020-11-15] MEDS ORDERED: STOOL SOFT-STI1 EACH PO (14:21)
[2020-11-15] MEDS ORDERED: OMEPRAZOLE MAGN20 MG PO (14:34)
[2020-11-15] MEDS ORDERED: ADVIL200 M1 PO (14:35)
[2020-11-15] MEDS ORDERED: PEPTO-BISMOL262 M1 PO (14:35)
[2020-11-15] MEDS ORDERED: HEADACHE RELIE1 EAC3 PO (14:36)
[2020-11-15] MEDS ORDERED: TUMS SMOOTHIES300 MG PO (14:37)
[2020-11-15 16:00] VITALS: BP 111/60
[2020-11-15 20:00] VITALS: BP 115/61
[2020-11-16] VITALS: BP 183/94
[2020-11-16 06:31] LABS: HEMATOCRIT 35.7 % (37.0-47.0); MEAN CELL VOLUME 84.6 fl (81.0-99.0); MEAN CORPUSCULAR HGB 25.8 pg (27.0-31.0); MEAN CORPUSCULAR HGB CONC 30.5 g/dl (33.0-37.0); MEAN PLATELET VOLUME 8.8 fl (9.6-12.3); PLATELET COUNT AUTOMATED 721 10*3/uL (130-400); RED BLOOD COUNT 4.22 10*6/uL (4.10-5.10); RED CELL DISTRI WIDTH 16.4 % (0-14.5); WHITE BLOOD COUNT 11.5 10*3/uL (4.8-10.8)
[2020-11-16 07:18] LABS: ATYPICAL LYMPHS 1 % (0-0); BASOPHILS 1 % (0-1); TOTAL CELLS COUNTED 100 #CELLS
[2020-11-16 07:19] LABS: OVALOCYTES FEW; PLATELET SUFFICIENCY HIGH (NORMAL); POLYCHROMASIA SLIGHT; SCHISTOCYTES FEW; TARGET CELLS FEW
[2020-11-16 08:00] VITALS: BP 110/61
[2020-11-16 12:00] VITALS: BP 120/76
[2020-11-16 16:00] VITALS: BP 109/51
[2020-11-16 20:00] VITALS: BP 114/54
[2020-11-17] VITALS: BP 111/58
[2020-11-17 08:00] VITALS: BP 107/51
[2020-11-17 12:00] VITALS: BP 110/59
== END 2020-11-17 12:30 | disposition home or self-care (01) | DRG 773 ==
LOC: ED 15:44 → EDHOLD 18:21 → 5E 18:21 → EDHOLD 19:53 → 5E 11-15 13:13
PROVIDERS: Internal Medicine; Nurse Practitioner Family; Student in an Organized Health Care Education/Training Program; ADMIT Emergency Medicine; ATTEND Emergency Medicine
DX: F13.239 Sedative, hypnotic or anxiolytic dependence with withdrawal, unspecified (principal); F11.23 Opioid dependence with withdrawal; K21.9 Gastro-esophageal reflux disease without esophagitis; B19.20 Unspecified viral hepatitis C without hepatic coma; F17.210 Nicotine dependence, cigarettes, uncomplicated; F31.9 Bipolar disorder, unspecified; E87.8 Other disorders of electrolyte and fluid balance, not elsewhere classified; R65.10 Systemic inflammatory response syndrome (SIRS) of non-infectious origin without acute organ dysfunction; D64.9 Anemia, unspecified; F15.10 Other stimulant abuse, uncomplicated; F41.1 Generalized anxiety disorder; N39.0 Urinary tract infection, site not specified; Z90.49 Acquired absence of other specified parts of digestive tract; Z79.51 Long term (current) use of inhaled steroids; Z71.6 Tobacco abuse counseling; Z79.899 Other long term (current) drug therapy

== ENCOUNTER 2021-04-14 11:01 | Inpatient (IN) | payer OTHER ==
[~2021-04-14] VITALS: Ht 170.1 cm; Wt 88.5 kg
[~2021-04-14 11:01] MED LIST changes: +ADVIL200 M1 PO; +DOXYCYCLINE100 MG PO; +HEADACHE RELIE1 EAC3 PO; +IBU800 M2 PO; +OMEPRAZOLE MAGN20 MG PO; +OMEPRAZOLE40 MG PO; +PEPTO-BISMOL262 M1 PO; +PROAIR HFA8.5 GM INH; +REMERON SOLTAB15 MG PO; +SENNA8.6 MG PO; +STOOL SOFT-STI1 EACH PO; +STOOL SOFTENER100 M3 PO; +SUBOXONE 8 MG-1 EACH SL; +TUMS SMOOTHIES300 MG PO; +TUMS300 MG PO; +VISTARIL50 MG PO; +[UNRECOGNIZED DRUG - OTHER] PO
[2021-04-14 11:55] VITALS: BP 124/73
[2021-04-14 12:49] LABS: BILIRUBIN Negative (Negative); BLOOD Negative (Negative); CLARITY Clear (Clear); COLOR Yellow (Yellow); GLUCOSE Negative (Negative); KETONE Trace (Negative); LEUKO ESTERASE 1+ (Negative); NITRITE Negative (Negative); SPECIFIC GRAVITY >= 1.030 (1.001-1.030)
[2021-04-14 12:49] LABS: HEMATOCRIT 36.6 % (37.0-47.0); MEAN CELL VOLUME 78.4 fl (81.0-99.0); MEAN CORPUSCULAR HGB 23.6 pg (27.0-31.0); MEAN CORPUSCULAR HGB CONC 30.1 g/dl (33.0-37.0); PLATELET COUNT AUTOMATED 622 10*3/uL (130-400); RED BLOOD COUNT 4.67 10*6/uL (4.10-5.10); WHITE BLOOD COUNT 12.4 10*3/uL (4.8-10.8)
[2021-04-14 12:58] LABS: URINE AMPHETAMINES < 1000 (1000ng/ml); URINE BARBITURATES < 200 (200ng/ml); URINE BENZODIAZEPINES > 200 (200ng/ml); URINE CANNABINOIDS (THC) > 50 (50ng/ml); URINE COCAINE < 300 (300ng/ml); URINE METHADONE < 300 (300ng/ml); URINE OPIATES < 300 (300ng/ml)
[2021-04-14 13:01] LABS: BACTERIA 1+; CALCIUM OXALATE CRYSTALS 1+
[2021-04-14 13:02] LABS: MUCOUS 3+; URINE PHENCYCLIDINE < 25 (25ng/ml)
[2021-04-14 13:02] LABS: ALBUMIN 3.4 gm/dl (3.1-4.5); ALKALINE PHOSPHATASE 91 U/L (45-117); BUN 7 mg/dl (7-24); CHLORIDE 109 mmol/L (98-107); CREATININE 0.58 mg/dL (0.55-1.02); POTASSIUM 3.9 mmol/L (3.5-5.1); SGOT/AST 34 IU/L (3-35); SGPT/ALT 33 U/L (12-78); SODIUM 137 mmol/L (136-145); TOTAL PROTEIN 7.2 gm/dL (6.4-8.2)
[2021-04-14 13:03] LABS: ETHYL ALCOHOL < 3.0 mg/dl (<3)
[2021-04-14 13:17] LABS: ACANTHOCYTES MODERATE; ATYPICAL LYMPHS 1 % (0-0); BASOPHILS 2 % (0-1); OVALOCYTES MODERATE; PLATELET SUFFICIENCY HIGH (NORMAL); TARGET CELLS FEW; TOTAL CELLS COUNTED 100 #CELLS
[2021-04-14 14:00] VITALS: BP 122/70
[2021-04-14 17:10] VITALS: BP 122/68
[2021-04-14 19:54] VITALS: BP 122/68
[2021-04-14 20:00] VITALS: BP 128/78
[2021-04-15 00:06] VITALS: BP 121/73
[2021-04-15 08:00] VITALS: BP 105/49
[2021-04-15 12:00] VITALS: BP 116/48
[2021-04-15 16:00] VITALS: BP 108/76
[2021-04-16] VITALS: BP 122/63
[2021-04-16 06:34] LABS: HEMATOCRIT 35.5 % (37.0-47.0); MEAN CELL VOLUME 76.7 fl (81.0-99.0); MEAN CORPUSCULAR HGB 23.3 pg (27.0-31.0); MEAN CORPUSCULAR HGB CONC 30.4 g/dl (33.0-37.0); MEAN PLATELET VOLUME 9.9 fl (9.6-12.3); RED BLOOD COUNT 4.63 10*6/uL (4.10-5.10); RED CELL DISTRI WIDTH 18.6 % (0-14.5); WHITE BLOOD COUNT 14.1 10*3/uL (4.8-10.8)
[2021-04-16 06:36] LABS: PLATELET COUNT AUTOMATED 900 10*3/uL (130-400)
[2021-04-16 07:02] LABS: ACANTHOCYTES MODERATE; ATYPICAL LYMPHS 2 % (0-0); MICROCYTOSIS SLIGHT; OVALOCYTES FEW; PLATELET SUFFICIENCY HIGH (NORMAL); TOTAL CELLS COUNTED 100 #CELLS
[2021-04-16 07:03] LABS: STOMATOCYTE FEW; TARGET CELLS MODERATE
[2021-04-16 08:00] VITALS: BP 122/63
[2021-04-16 12:00] VITALS: BP 131/76
[2021-04-16 16:00] VITALS: BP 120/72
[2021-04-16 20:00] VITALS: BP 125/72
[2021-04-17 00:33] VITALS: BP 123/59
[2021-04-17 08:00] VITALS: BP 129/78
[2021-04-17] MEDS ORDERED: PROAIR HFA8.5 GM INH (08:11)
[2021-04-17] MEDS ORDERED: REMERON SOLTAB15 MG PO (08:11)
[2021-04-17] MEDS ORDERED: OMEPRAZOLE40 MG PO (08:11)
[2021-04-17] MEDS ORDERED: ROPINIROLE HYD0.5 MG PO (08:11)
[2021-04-17] MEDS ORDERED: ZOFRAN 4 MG ED2 TAB PO (08:11)
[2021-04-17] MEDS ORDERED: MOTRIN 600 MG E4 TAB PO (08:11)
[2021-04-17] MEDS ORDERED: PAIN RELIEVER PO (08:11)
[2021-04-17] MEDS ORDERED: SENNA8.6 MG PO (08:11)
[2021-04-17] MEDS ORDERED: METHOCARBAMOL750 M1 PO (08:11)
[2021-04-17] MEDS ORDERED: VISTARIL50 MG PO (08:11)
[2021-04-17 12:00] VITALS: BP 120/73
[2021-04-17 16:00] VITALS: BP 116/68
[2021-04-17 20:00] VITALS: BP 115/74
[2021-04-18] VITALS: BP 96/53
[2021-04-18 06:18] LABS: HEMATOCRIT 37.1 % (37.0-47.0); MEAN CELL VOLUME 76.3 fl (81.0-99.0); MEAN CORPUSCULAR HGB CONC 30.2 g/dl (33.0-37.0); MEAN PLATELET VOLUME 9.3 fl (9.6-12.3); PLATELET COUNT AUTOMATED 921 10*3/uL (130-400); RED BLOOD COUNT 4.86 10*6/uL (4.10-5.10); RED CELL DISTRI WIDTH 18.6 % (0-14.5); WHITE BLOOD COUNT 11.8 10*3/uL (4.8-10.8)
[2021-04-18 06:43] LABS: CREATININE 0.57 mg/dL (0.55-1.02)
[2021-04-18 07:07] LABS: ATYPICAL LYMPHS 5 % (0-0); MICROCYTOSIS SLIGHT; PLATELET SUFFICIENCY HIGH (NORMAL); TOTAL CELLS COUNTED 100 #CELLS
[2021-04-18 07:08] LABS: BURR CELLS FEW; TARGET CELLS FEW
[2021-04-18 08:00] VITALS: BP 103/68
== END 2021-04-18 11:17 | DRG 773 ==
LOC: ED 11:01 → 4E 12:50 → EDHOLD 12:50 → 4E 17:59
PROVIDERS: Emergency Medicine; ADMIT Internal Medicine; ATTEND Internal Medicine
DX: F11.13 Opioid abuse with withdrawal (principal); F13.10 Sedative, hypnotic or anxiolytic abuse, uncomplicated; D50.9 Iron deficiency anemia, unspecified; D47.3 Essential (hemorrhagic) thrombocythemia; E87.8 Other disorders of electrolyte and fluid balance, not elsewhere classified; J45.20 Mild intermittent asthma, uncomplicated; D72.829 Elevated white blood cell count, unspecified; F17.210 Nicotine dependence, cigarettes, uncomplicated; F31.9 Bipolar disorder, unspecified; Z20.822 Contact with and (suspected) exposure to COVID-19; F41.1 Generalized anxiety disorder; K21.9 Gastro-esophageal reflux disease without esophagitis; B19.20 Unspecified viral hepatitis C without hepatic coma; Z90.49 Acquired absence of other specified parts of digestive tract; Z90.81 Acquired absence of spleen; Z82.49 Family history of ischemic heart disease and other diseases of the circulatory system; Z82.3 Family history of stroke; Z79.899 Other long term (current) drug therapy

== ENCOUNTER 2023-03-21 14:52 | Emergency (ER) | payer OTHER ==
[~2023-03-21] VITALS: Ht 170.1 cm; Wt 70.3 kg
[~2023-03-21 14:52] MED LIST changes: +METHOCARBAMOL750 M1 PO; +MOTRIN 600 MG E4 TAB PO; +PAIN RELIEVER PO; +ROPINIROLE HYD0.5 MG PO; +ZOFRAN 4 MG ED2 TAB PO
[2023-03-21] MEDS ORDERED: VIBRAMYCIN100 MG PO (15:17)
[2023-03-21 15:29] LABS: BILIRUBIN Negative (Negative); BLOOD Negative (Negative); CLARITY Clear (Clear); COLOR Yellow (Yellow); GLUCOSE Negative (Negative); KETONE Negative (Negative); LEUKO ESTERASE Negative (Negative); NITRITE Negative (Negative); PH 5.5 (4.5-8.0); SPECIFIC GRAVITY >= 1.030 (1.001-1.030)
[2023-03-21 15:43] LABS: BACTERIA 1+; FINE GRANULAR CAST 0-2; HYALINE CAST 0-2; MUCOUS 1+; RBC 0-2 rbc/hpf (0-2)
== END 2023-03-21 15:51 | disposition home or self-care (01) ==
LOC: ED 14:52
PROVIDERS: Nurse Practitioner Family
DX: Z20.2 Contact with and (suspected) exposure to infections with a predominantly sexual mode of transmission (principal); F41.9 Anxiety disorder, unspecified; F31.9 Bipolar disorder, unspecified; Z98.890 Other specified postprocedural states; Z90.49 Acquired absence of other specified parts of digestive tract; F17.200 Nicotine dependence, unspecified, uncomplicated; F19.10 Other psychoactive substance abuse, uncomplicated; Z20.822 Contact with and (suspected) exposure to COVID-19